=== PATIENT | female | born 1965 | race Caucasian/White ===

== ENCOUNTER 2025-01-25 09:15 | Emergency (ER) | payer SELFPAY ==
[~2025-01-25] VITALS: Ht 165.1 cm; Wt 77.3 kg
[2025-01-25] MEDS ORDERED: METR-159 PO (10:15)
[2025-01-25] MEDS ORDERED: DIF150T PO (10:15)
--- NOTE | 2025-01-25 10:15 | Physician Documentation ---
History of Present Illness ~ General Chief Complaint: Vaginal discharge Stated Complaint: VAGINAL DISCHARGE Time Seen by MD: 10:06 Source: patient Mode of Arrival: POV Exam Limitations: no limitations History of Present Illness Initial Comments 60-year-old female with history of chronic yeast infections started using boric acid but now has a brownish discharge from her vagina. Patient continues to have itching. Patient has used vaginal probiotics in the past and has used Diflucan. Patient does have primary care but due to the brown discharge she wanted to make sure she did not need an antibiotic. Patient has been and monogamous for 30 years. Patient states sheets done a recent self swab for other bacterial growth which was negative. No other associated symptoms no abdominal pain nausea or vomiting. Medication Reconciliation Allergies: Coded Allergies: No Known Allergies (Unverified , 01/25/25) Past Medical History Past Medical History: No Pertinent History Past Surgical History: noncontributory Lives with: Spouse Lives In: Home Occupation: employed Review of Systems All Other Systems at this time: Reviewed and Negative Female Genitalia: Reports: see HPI Physical Exam Physical Exam Vital Signs: Temperature: 98.1, Source: Oral, Heart Rate: 63, Respiratory Rate: 12, BP: 127/57, Pulse Oximetry: 99, Weight: 77.270 Oxygen Flow Rate: 0 Physical Exam General: Alert, no apparent distress. HEENT: moist mucous membranes. Neck: Full range of motion. Respiratory: No respiratory distress speaking in full sentences Chest: No accessory muscle use. Cardiovascular: Appears well perfused Neurologic: Oriented x4. Psychiatric: Normal mood and affect. Skin: Normal color, warm and dry. No edema, no ecchymosis. Progress Results/Orders Results/Orders Vital Signs 01/25/25 09:19 Temp 98.1 Pulse 63 Resp 12 B/P (MAP) 127/57 Pulse Ox 99 O2 Flow Rate 0 Medical Decision Making Additional information obtaine: N/A Findings 60-year-old with brown discharge monogamous for 30 years STI less likely but has adequate primary care where she has been recently swabbed per her. We will treat with Flagyl for bacterial vaginosis as she could have caused a page balance off due to using boric acid as well as give her some Diflucan to follow up with primary care Differential Diagnosis Bacterial vaginosis STD, yeast, Departure Time of Disposition: 10:14 Disposition: 01 HOME / SELF CARE / HOMELESS Impression: Primary Impression: Bacterial vaginosis Additional Impression: Candidiasis of vagina Condition: Stable Discharge Instructions: Bacterial Vaginosis Additional Instructions: Take medication as prescribed and follow up with primary care Referrals: NO PRIMARY CARE PROVIDER (PCP) Prescriptions Fluconazole* (Diflucan*) 150 Mg Tablet 1 TAB PO ONCE for 1 Day, #1 TAB 1 Refill Prov: NEEMA LANE NP 01/25/25 Metronidazole* (Flagyl*) 500 Mg Tablet 1 TAB PO Q12H for 7 Days, #14 TAB Prov: NEEMA LANE NP 01/25/25 Education Educated: Patient Educated regarding: diagnosis, treatment, need for follow up Signature Scribe Signature: No scribe Attestation: The note accurately reflects work and decisions made by me.Neema Lane - [employer] 01/25/25 10:[address] NP Jan 25, 2025 10:15
[2025-01-25 10:36] VITALS: BP 131/76; PULSE 76; RESP 16; TEMP 98; O2SAT 98
== END 2025-01-25 10:44 | disposition home or self-care (01) ==
LOC: ER 09:17
DX: B37.31 Acute candidiasis of vulva and vagina (principal); B96.89 Other specified bacterial agents as the cause of diseases classified elsewhere
CPT/HCPCS: 99283